=== PATIENT | female | born 1945 | race Caucasian/White ===

== ENCOUNTER 2019-09-30 08:30 | Outpatient (CLI) | payer MEDICARE, BC, SELFPAY ==
--- NOTE | ~2019-09-30 | MM_ITS ---
EXAMINATION: MM screening erick BI w adelia HISTORY: Screening mammogram TECHNIQUE: Craniocaudal and mediolateral oblique 3-D tomosynthesis images were obtained and synthetic 2-D images were generated. CAD analysis was submitted and interpreted. COMPARISON: 05/30/2018, 05/15/2017, 05/09/2017, 01/22/2017 BREAST PARENCHYMAL COMPOSITION: There are scattered areas of fibroglandular density. FINDINGS: RIGHT BREAST: There is no evidence of suspicious mass, calcification, or architectural distortion to suggest malignancy. There has been no significant interval change. LEFT BREAST: Developing asymmetry is present in the posterior third of the upper outer quadrant of th e breast 9 cm from the nipple. IMPRESSION: 1. Developing asymmetry of the left breast. 2. Additional mammographic views and possible breast ultrasound are recommended. BI-RADS Category 0: Incomplete: Needs additional imaging evaluation. Reviewed, dictated and finalized at location A. IMPRESSION: 1. Developing asymmetry of the left breast. 2. Additional mammographic views and possible breast ultrasound are recommended . BI-RADS Category 0: Incomplete: Needs additional imaging evaluation.
== END 2019-09-30 08:31 | disposition home or self-care (01) ==
PROVIDERS: PCP Family Medicine; Visit Provider Obstetrics & Gynecology
DX: Z12.31 Encounter for screening mammogram for malignant neoplasm of breast (principal); R92.8 Other abnormal and inconclusive findings on diagnostic imaging of breast
CPT/HCPCS: 77063; 77067

== ENCOUNTER 2019-10-24 11:23 | Outpatient (CLI) | payer MEDICARE, BC, SELFPAY ==
--- NOTE | ~2019-10-24 | MM_ITS ---
EXAMINATION: MM diagnostic mammo unilat LT HISTORY: Developing asymmetry in posterior third of upper outer quadrant of left breast 9 cm from nip ple was reported on 09/30/2019 screening mammogram TECHNIQUE: Additional 3-D tomosynthesis images of the left breast were performed and synthetic 2-D im ages were generated. CAD analysis was submitted and interpreted. COMPARISON: 09/30/2019, 05/30/2018, 05/09/2017 bilateral digital screening mammogram examinations 05/15/2017diagnostic left digital mammogram and left breast ultrasound BREAST PARENCHYMAL COMPOSITION: There are scattered areas of fibroglandular density. FINDINGS: There is approximately 8 mm focal irregular asymmetric soft tissue density in the posterior upper outer quadrant of the left breast. Upper outer quadrant left breast ultrasound examination is recommended. IMPRESSION: 1. 8 mm focal asymmetric irregular soft tissue density in the posterior upper outer left breast 2. Targeted upper outer quadrant left breast ultrasound examination is recommended BI-RADS Category 0: Incomplete: Needs additional imaging evaluation. Reviewed, dictated and finalized at location A. IMPRESSION: 1. 8 mm focal asymmetric irregular soft tissue density in the posterior upper o uter left breast 2. Targeted upper outer quadrant left breast ultrasound examination is recommen ded BI-RADS Category 0: Incomplete: Needs additional imaging evaluation.
== END 2019-10-24 11:24 | disposition home or self-care (01) ==
LOC: ANHIMG 11:25
PROVIDERS: PCP Family Medicine; Visit Provider Obstetrics & Gynecology
DX: R92.8 Other abnormal and inconclusive findings on diagnostic imaging of breast (principal)
CPT/HCPCS: 77065

== ENCOUNTER 2019-11-05 13:47 | Outpatient (CLI) | payer MEDICARE, BC, SELFPAY ==
--- NOTE | ~2019-11-05 | US_ITS ---
EXAMINATION: US breast LT limited HISTORY: Left breast mass TECHNIQUE: Limited left breast ultrasound performed. FINDINGS: There is a 10 mm x 9 mm irregular hypoechoic mass with indistinct margins at the 12:30 loca tion 7 cm from the nipple corresponding to the mammographic finding in question. The mass demonstrate s some posterior acoustic shadowing and no definite internal vascularity IMPRESSION: Suspicious left breast mass. Ultrasound guided biopsy is recommended. BI-RADS category 4, suspicious findings. Reviewed, dictated and finalized at location A.
== END 2019-11-05 13:48 | disposition home or self-care (01) ==
PROVIDERS: PCP Family Medicine; Visit Provider Obstetrics & Gynecology
DX: R92.8 Other abnormal and inconclusive findings on diagnostic imaging of breast (principal)
CPT/HCPCS: 76642

== ENCOUNTER 2020-03-19 09:05 | Outpatient (CLI) | payer MEDICARE, BC, SELFPAY ==
--- NOTE | ~2020-03-19 | DEXA_ITS ---
Bone Density Report Name: Amarilis Barrios Age: 75 Sex: Female Ethnicity: White Date of : 1945 Indication: postmenopausal; height loss; prior fracture; cancer; Referring Provider: Shahnaz Rodriguez Study: Bone densitometry was performed. 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 These spine BMD and T score and Z score measurements are not reflective of the patient's true general bone mineral density. Bone Density: Region BMD T-score Z-score Classification AP Spine (L1-L4) 0.917 -1.2 1.1 Osteopenia Femoral Neck (Left) 0.695 -1.4 0.6 Osteopenia Total Hip (Left) 0.848 -0.8 0.9 Normal Total Hip Bilateral Avg 0.850 -0.8 0.9 Normal Femoral Neck (Right) 0.691 -1.4 0.6 Osteopenia Total Hip (Right) 0.852 -0.7 0.9 Normal World Health Organization criteria for BMD impression classify patients as: Normal (T-score at or above -1.0), Osteopenia (T-score between -1.0 and -2.5), or Osteoporosis (T-score at or below -2.5). 10-year Fracture Risk(1): Major Osteoporotic Fracture 16% Hip Fracture 2.6% Reported Risk Factors: [place] (), Neck BMD=0.691, BMI=26.8, previous fracture (1) FRAX(R) Version 3.08. Fracture probability calculated for an untreated patient. Fracture probability may be lower if the patient has received treatment. Previous Exams: Region Exam Age BMD T-score BMD Change BMD Change Date g/cm2 vs Baseline vs Previous AP Spine(L1-L4) 03/19/2020 75 0.917 -1.2 -0.113(-11.0%) -0.027(-2.9%)* 05/09/2017 72 0.944 -0.9 -0.087(-8.4%)# 0.037(4.1%)* 03/11/2015 70 0.907 -1.3 -0.124(-12.0%) -0.026(-2.8%)# 02/01/2012 67 0.933 -1.0 -0.097(-9.5%)# -0.087(-8.5%)# 11/17/2009 64 1.019 -0.3 -0.011(-1.1%) -0.009(-0.9%) 11/09/2007 62 1.029 -0.2 -0.002(-0.2%) 0.015(1.5%) 08/18/2005 60 1.014 -0.3 -0.017(-1.6%) -0.017(-1.6%) 07/15/2002 57 1.030 -0.2 Total Hip(Left) 03/19/2020 75 0.848 -0.8 -0.101(-10.6%) -0.034(-3.8%)* 05/09/2017 72 0.882 -0.5 -0.067(-7.1%)# 0.028(3.3%)* 03/11/2015 70 0.853 -0.7 -0.095(-10.0%) -0.057(-6.3%)# 02/01/2012 67 0.910 -0.3 -0.038(-4.0%)# -0.015(-1.7%)# 11/17/2009 64 0.926 -0.1 -0.023(-2.4%) -0.004(-0.4%) 11/09/2007 62 0.930 -0.1 -0.019(-2.0%) -0.002(-0.2%) 08/18/2005 60 0.932 -0.1 -0.017(-1.8%) -0.017(-1.8%) 07/15/2002 57 0.949 0.1 Total Hip(Right) 03/19/2020 75 0.852 -0.7 -0.077(-8.3%)# -0.007(-0.8%) 05/09/2017 72 0.858 -0.7 -0.071(-7.6%)# 0.008(0.9%)
== END 2020-03-19 09:06 | disposition home or self-care (01) ==
LOC: ANHIMG 09:09
PROVIDERS: PCP Family Medicine; Visit Provider Nurse Practitioner
DX: Z78.0 Asymptomatic menopausal state (principal); M85.88 Other specified disorders of bone density and structure, other site; M85.852 Other specified disorders of bone density and structure, left thigh; M85.851 Other specified disorders of bone density and structure, right thigh
CPT/HCPCS: 77080

== ENCOUNTER → 2020-04-28 02:48 | Outpatient (CLI) | payer MEDICARE, BC, SELFPAY ==
[2020-04-28 18:08] LABS: SARS-CoV-2 RNA PCR Negative
== END ==
PROVIDERS: PCP Family Medicine; Visit Provider Internal Medicine Gastroenterology
DX: Z01.812 Encounter for preprocedural laboratory examination (principal); Z20.822 Contact with and (suspected) exposure to COVID-19
CPT/HCPCS: C9803; U0003; U0005

== ENCOUNTER 2020-05-01 01:00 | Day surgery (SDC) | payer MEDICARE, BC, SELFPAY ==
[2020-03-06 16:02] VITALS: BMI 24.9
--- NOTE | 2020-04-16 13:19 | PC.NURSE ---
Patient updated on new COVID and arrival times. Denies any changes in health history and medications.
[2020-05-01 08:15] VITALS: BP 163/77; PULSE 55; RESP 17; TEMP 37.1; O2SAT 98; BMI 24.9
[2020-05-01] MEDS: LACTATED RINGERS 1,000 ML 150 ML IV CONT (08:19)
--- NOTE | 2020-05-01 08:35 | P.PNAN_ITS ---
Anes - Initial Pre Proc Eval Procedure: Operation Date: 05/01/20 09:30 Proposed Procedures p Screening Colonoscopy - Gordon Casas MD Date/Time: 05/01/20 08:35 Surgeon: Gordon Casas MD Pre Op Diagnosis: neoplasm screening, hx breast CA Patient Data Age: 75 Gender: F Height: 5 ft 6 in Weight: 70 kg Last Vital Signs Temp 98.8 F 05/01/20 08:15 Pulse 55 L 05/01/20 08:15 Resp 17 05/01/20 08:15 BP 163/77 H 05/01/20 08:15 Pulse Ox 98 05/01/20 08:15 Allergies Allergy/AdvReac Type Severity Reaction Status Date / Time No Known Allergies Allergy Mild Verified 05/01/20 08:14 Home Medications Medication Instructions Recorded Confirmed Type levothyroxine 125 mcg tablet 125 mcg PO DAILY #30 tablet 12/24/19 05/01/20 Rx ascorbic acid (vitamin C) 1 tablet PO DAILY 03/06/20 05/01/20 History cholecalciferol (vitamin D3) 50 mcg PO DAILY 03/06/20 05/01/20 History [Vitamin D3] [id number]-jfgxaobfu-hpw C-Mn 1 cap PO DAILY 03/06/20 05/01/20 History [Glucosamine 1500 Complex] melatonin 8 mg PO HS PRN 03/06/20 05/01/20 History nutritional supplement-fiber 2 ea PO DAILY 03/06/20 05/01/20 History [Juice Plus] vitamin B complex [Super B Complex] 1 cap PO DAILY 03/06/20 05/01/20 History Patient hx anesthesia problems: none Family hx anesthesia problems: none PMFSH Past Medical History Medical History (Updated 12/25/19 @ 16:40 by Shahnaz Rodriguez NP) History of vaginal delivery x 3 Hyperlipidemia Osteopenia Thyroid disease Surgical History Surgical History [place] teeth removed Family History Family History Father Acute myocardial infarction Hypertension Mother Diabetes mellitus Cerebrovascular accident Social History Social History Smoking status: Never smoker Alcohol intake: current Drinks per week: 4 Alcohol use details: WINE Substance use: never Substance use type: does not use Living arrangements: alone Spiritual care concerns: No Anes - Eval Final PreProcedure Day of Procedure 05/01/20 08:35 Patient weight: overweight Heart: regular rate and rhythm Lungs: clear to auscultation Airway: Mallampati scale class II Neurological: alert and oriented Last oral intake: >/= 8 hours ASA classification: III Emergent: no Anesthetic plan: proceed Anesthesia type and monitoring: general GIVS and standard monitoring Informed Consent: The patient's anesthetic plan and its attendant risks and benefits were discussed with the patient/family/POA. Questions were solicited and answers provided to the satisfaction of the patient/family/POA.
--- NOTE | 2020-05-01 08:49 | PM.HPGS ---
History of Present Illness History of Present Illness Consent: Risks, benefits, and alternatives have been discussed and questions answered. Patient agrees to proceed with procedure. Chief complaint: neoplasm screening, hx breast CA Narrative: Amarilis Barrios is a 75 year old female here for screening colonoscopy, last one 10 years ago Review of Systems Constitutional: Constitutional: Denies headache(s) and Denies weakness Eyes: Eyes: Denies blurry vision ENT: Reports Normal hearing present, Denies headache(s) and Denies neck pain Cardiovascular: Cardiovascular: Denies chest pain and Denies dyspnea Respiratory: Respiratory: Denies dyspnea Gastrointestinal: Gastrointestinal: Reports no additional gastrointestinal complaints Genitourinary: Genitourinary: Denies dysuria Musculoskeletal: Musculoskeletal: Denies neck pain Integumentary/Breasts: Skin/Breast: Denies dry skin Neurologic: Reports Normal hearing present, Denies headache(s) and Denies weakness Psychiatric: Psychiatric: Denies anxiety Endocrine: Endocrine: Denies change in body appearance Hematologic/Lymphatic: Hematologic/Lymphatic: Denies easy bleeding Allergic/Immunologic: Allergic/Immunologic: Denies urticaria PMFSH Past Medical History Medical History (Updated 05/01/20 @ 08:49 by Gordon Casas MD) Colon cancer screening History of vaginal delivery x 3 Hyperlipidemia Osteopenia Thyroid disease Surgical History Surgical History [place] teeth removed Family History Family History Father Acute myocardial infarction Hypertension Mother Diabetes mellitus Cerebrovascular accident Social History Social History Smoking status: Never smoker Alcohol intake: current Drinks per week: 4 Alcohol use details: WINE Substance use: never Substance use type: does not use Living arrangements: alone Spiritual care concerns: No Meds Home Medications and Allergies Home Medications Medication Instructions Recorded Confirmed Type levothyroxine 125 mcg tablet 125 mcg PO DAILY #30 tablet 12/24/19 05/01/20 Rx ascorbic acid (vitamin C) 1 tablet PO DAILY 03/06/20 05/01/20 History cholecalciferol (vitamin D3) 50 mcg PO DAILY 03/06/20 05/01/20 History [Vitamin D3] ydlydaywkcz-anggrbopt-zit C-Mn 1 cap PO DAILY 03/06/20 05/01/20 History [Glucosamine 1500 Complex] melatonin 8 mg PO HS PRN 03/06/20 05/01/20 History nutritional supplement-fiber 2 ea PO DAILY 03/06/20 05/01/20 History [Juice Plus] vitamin B complex [Super B Complex] 1 cap PO DAILY 03/06/20 05/01/20 History Allergies Allergy/AdvReac Type Severity Reaction Status Date / Time No Known Allergies Allergy Mild Verified 05/01/20 08:14 Vital Signs Vital Signs - 24 hr 05/01/20 08:15 Temperature 98.8 F Pulse Rate 55 L Respiratory Rate 17 Blood Pressure 163/77 H Pulse Oximetry 98 Exam Const: General: comfortable and no acute distress HENMT: General nose exam: Normal nares present Eyes: General: appearance normal, both eyes and all related structures Neck: Neck: no JVD Resp: Auscultation: clear to auscultation bilaterally Cardio: Rate: regular rate Rhythm: regular rhythm GI: Inspection: non-distended GI Palp: Yes Soft to palpation Skin: General skin exam: normal color Neuro: General: gait normal Speech: normal speech Extrem: General: normal to inspection Psych: Mental Status: mental status grossly normal Assessment and Plan Assessment and plan (1) Colon cancer screening: Code(s): Z12.11 - Encounter for screening for malignant neoplasm of colon Status: Acute Assessment and Plan: proceed with colonoscopy
[2020-05-01 09:20] VITALS: BP 102/41; PULSE 55; RESP 20; O2SAT 99
[2020-05-01 09:30] VITALS: BP 126/40; PULSE 45; RESP 16; O2SAT 100
[2020-05-01 09:40] VITALS: BP 148/65; PULSE 47; RESP 13; O2SAT 100
== END 2020-05-01 09:56 | disposition home or self-care (01) ==
PROVIDERS: PCP Family Medicine; Referring Provider Internal Medicine Medical Oncology; Visit Provider Internal Medicine Gastroenterology
PROC: 0DJD8ZZ Inspection of Lower Intestinal Tract, Via Natural or Artificial Opening Endoscopic (ICD-10-PCS; CPT 45378; principal; 2020-05-01 09:30)
DX: Z12.11 Encounter for screening for malignant neoplasm of colon (principal); D12.3 Benign neoplasm of transverse colon; D12.2 Benign neoplasm of ascending colon; K57.30 Diverticulosis of large intestine without perforation or abscess without bleeding; E78.5 Hyperlipidemia, unspecified; E07.9 Disorder of thyroid, unspecified; M85.80 Other specified disorders of bone density and structure, unspecified site; Z85.3 Personal history of malignant neoplasm of breast
CPT/HCPCS: 45385; 88305; J2704; J7120

== ENCOUNTER 2023-02-08 10:15 | Outpatient (CLI) | payer MEDICARE, BC, SELFPAY ==
[2023-02-08 11:05] LABS: Basophils Absolute Auto 0.1 K/mm3 (0.0-0.1); Eosinophils Absolute Auto 0.2 K/mm3 (0-0.3); Eosinophils Percent Auto 2.6 % (0-4.4); Hematocrit 45.1 % (37.0-47.0); Hemoglobin 14.1 g/dL (12.0-15.0); Immature Granulocyte Absolute 0.01 K/mm3 (0.00-0.031); Immature Granulocyte Percent A 0.2 % (0-0.5); Lymphocytes Absolute Auto 1.42 K/mm3 (0.9-3.2); Lymphocytes Percent Auto 24.5 % (18.3-44.2); Mean Corpuscular HGB Conc 31.3 g/dl (32-36); Mean Corpuscular Hemoglobin 29.4 pg (26-34); Mean Corpuscular Volume 94.2 fl (80-100); Mean Platelet Volume 10.5 fl (7.4-10.4); Monocytes Absolute Auto 0.5 K/mm3 (0.1-0.6); Monocytes Percent Auto 8.8 % (2.6-8.5); Neutrophils Absolute Auto 3.6 K/mm3 (1.3-6.7); Neutrophils Percent Auto 62.9 % (45.5-73.1); Platelet Count Result 248 k/mm3 (150-375); Red Blood Count 4.79 M/mm3 (4.2-5.4); Red Cell Distribution Width 13.1 % (11.5-14.5); White Blood Count 5.8 K/mm3 (4.5-10.0)
[2023-02-08 11:18] LABS: Alanine Aminotransferase 27 U/L (6-35); Albumin Level 4.2 g/dL (3.5-5.1); Alkaline Phosphatase 75 U/L (38-126); Anion Gap 8 mmol/L (8-16); Aspartate Amino Transferase 28 U/L (14-36); Bilirubin,Total 0.5 mg/dL (0.2-1.3); Blood Urea Nitrogen 11 mg/dL (7-17); Calcium 9.7 mg/dL (8.4-10.2); Carbon Dioxide 25 mmol/L (22-30); Chloride 106 mmol/L (98-107); Cholesterol 251 mg/dL (0-200); Estimated Glomerular Filt Rate > 60; Glucose 104 mg/dL (65-110); HDL Direct 67 mg/dL; Sodium 139 mmol/L (137-145); Triglycerides 130 mg/dL (<150)
[2023-02-08 11:30] LABS: LDL Cholesterol Direct 130 mg/dL
[2023-02-11 14:01] LABS: Vitamin D 1,25 (OH)2 Total 45 pg/mL (18-72); Vitamin D2 1,25 (OH)2 <8 pg/mL; Vitamin D3 1,25 (OH)2 45 pg/mL
== END 2023-02-08 10:16 | disposition home or self-care (01) ==
LOC: ANHLAB 10:18
PROVIDERS: PCP Family Medicine; Visit Provider Nurse Practitioner Family
DX: E53.8 Deficiency of other specified B group vitamins (principal); E55.9 Vitamin D deficiency, unspecified; I10 Essential (primary) hypertension
CPT/HCPCS: 36415; 80053; 80061; 82607; 82652; 84443; 85025

== ENCOUNTER 2023-07-20 03:50 | Day surgery (SDC) | payer MEDICARE, BC, SELFPAY ==
[2023-07-06 09:50] VITALS: BMI 29.3
[2023-07-20 08:38] VITALS: BP 120/70; PULSE 55; RESP 18; TEMP 36.1; O2SAT 98
[2023-07-20] MEDS: LACTATED RINGERS 1,000 ML 150 ML IV CONT (09:00)
--- NOTE | 2023-07-20 09:30 | WPDANESEPPF ---
Anes - Initial Pre Proc Eval Procedure: Operation Date: 07/20/23 10:00 Proposed Procedures p Colonoscopy - Gordon Casas MD Date/Time: 07/20/23 09:30 Surgeon: Gordon Casas MD Pre Op Diagnosis: Personal hx. colon polyps Patient Data Age: 78 Gender: F Height: 1.63 m Weight: 77.5 kg Last Vital Signs Temp 97 F L 07/20/23 08:38 Pulse 55 L 07/20/23 08:38 Resp 18 07/20/23 08:38 BP 120/70 07/20/23 08:38 Pulse Ox 98 07/20/23 08:38 O2 Del Method Room Air 07/20/23 08:38 Allergies Allergy/AdvReac Type Severity Reaction Status Date / Time No Known Allergies Allergy Mild Verified 07/20/23 08:37 Home Medications Medication Instructions Recorded Confirmed Type cholecalciferol (vitamin D3) 50 50 mcg PO DAILY 03/06/20 07/13/23 History mcg (2,000 unit) capsule (Vitamin D3) ouzsbgyyopr-navgknayr-wxa C-Mn 500 1 cap PO DAILY 03/06/20 07/13/23 History mg-400 mg capsule vitamin B complex 1 cap PO DAILY 03/06/20 07/13/23 History anastrozole 1 mg tablet 1 mg PO DAILY 07/30/20 07/13/23 History simvastatin 20 mg tablet 20 mg PO QHS #90 tabs 02/07/23 07/13/23 Rx levothyroxine 137 mcg tablet 137 mcg PO DAILY #90 tabs 05/12/23 07/13/23 Rx calcium carbonate 600 mg PO BID 07/13/23 07/13/23 History Patient hx anesthesia problems: none Family hx anesthesia problems: none Results Review: All pre-operative results and documents have been reviewed as part of the pre-operative evaluation. [facility] Past Medical History Medical History Colon polyps FH: mastectomy (~01/2020) History of vaginal delivery x 3 Hyperlipidemia Osteopenia Thyroid disease Vitamin B deficiency Vitamin D deficiency Surgical History Surgical History H/O breast reconstruction H/O left mastectomy Family History Family History Father Acute myocardial infarction Hypertension Mother Diabetes mellitus Cerebrovascular accident Mother Diabetes mellitus Cerebrovascular accident Father Hypertension FH myocardial infarction male first degree age known Grandparent Cerebrovascular accident Son Diabetes mellitus Social History Social History Smoking status: Former smoker Tobacco type: cigarettes Smoking end date: 02/06/74 Alcohol intake: current Drinks per week: 14 Alcohol use details: WINE Substance use: never Substance use type: does not use Lack of Transportation: No Lack of Food: Never True Current Housing: I Have Housing Concerned About Future Housing: No Difficulty Paying Gas/Electric Bills: No Difficulty Paying for Meds: No Currently Unemployed: No Education: High School Diploma/GED Difficulty w/ Childcare or Family Care: No Living arrangements: alone Occupation/Education: retired Gender identity (if verbalized by the patient): Female Spiritual care concerns: No Agree to blood products: Yes Anes - Eval Final PreProcedure Day of Procedure 07/20/23 09:30 Patient weight: obese Heart: regular rate and rhythm Lungs: clear to auscultation Airway: Mallampati scale class II Neurological: alert and oriented Last oral intake: >/= 8 hours ASA classification: III Emergent: no Anesthetic plan: proceed Anesthesia type and monitoring: general GIVS and standard monitoring Results Review: All pre-operative results and documents have been reviewed as part of the pre-operative evaluation. Informed Consent: The patient's anesthetic plan and its attendant risks and benefits were discussed with the patient/family/POA. Questions were solicited and answers provided to the satisfaction of the patient/family/POA.
--- NOTE | 2023-07-20 09:36 | PM.HPGS ---
History of Present Illness History of Present Illness Consent: Risks, benefits, and alternatives have been discussed and questions answered. Patient agrees to proceed with procedure. Chief complaint: Personal hx. colon polyps Narrative: Amarilis Barrios is a 78 year old female with colon polyps in 2020 Review of Systems Review of Systems: All systems reviewed & are unremarkable except as noted in HPI and below PMFSH Past Medical History Medical History Colon polyps FH: mastectomy (~01/2020) History of vaginal delivery x 3 Hyperlipidemia Osteopenia Thyroid disease Vitamin B deficiency Vitamin D deficiency Surgical History Surgical History H/O breast reconstruction H/O left mastectomy Family History Family History Father Acute myocardial infarction Hypertension Mother Diabetes mellitus Cerebrovascular accident Mother Diabetes mellitus Cerebrovascular accident Father Hypertension FH myocardial infarction male first degree age known Grandparent Cerebrovascular accident Son Diabetes mellitus Social History Social History Smoking status: Former smoker Tobacco type: cigarettes Smoking end date: 02/06/74 Alcohol intake: current Drinks per week: 14 Alcohol use details: WINE Substance use: never Substance use type: does not use Lack of Transportation: No Lack of Food: Never True Current Housing: I Have Housing Concerned About Future Housing: No Difficulty Paying Gas/Electric Bills: No Difficulty Paying for Meds: No Currently Unemployed: No Education: High School Diploma/GED Difficulty w/ Childcare or Family Care: No Living arrangements: alone Occupation/Education: retired Gender identity (if verbalized by the patient): Female Spiritual care concerns: No Agree to blood products: Yes Meds Home Medications and Allergies Home Medications Medication Instructions Recorded Confirmed Type cholecalciferol (vitamin D3) 50 50 mcg PO DAILY 03/06/20 07/13/23 History mcg (2,000 unit) capsule (Vitamin D3) usniaffovar-ognbjjwfu-ckr C-Mn 500 1 cap PO DAILY 03/06/20 07/13/23 History mg-400 mg capsule vitamin B complex 1 cap PO DAILY 03/06/20 07/13/23 History anastrozole 1 mg tablet 1 mg PO DAILY 07/30/20 07/13/23 History simvastatin 20 mg tablet 20 mg PO QHS #90 tabs 02/07/23 07/13/23 Rx levothyroxine 137 mcg tablet 137 mcg PO DAILY #90 tabs 05/12/23 07/13/23 Rx calcium carbonate 600 mg PO BID 07/13/23 07/13/23 History Allergies Allergy/AdvReac Type Severity Reaction Status Date / Time No Known Allergies Allergy Mild Verified 07/20/23 08:37 Vital Signs Vital Signs - 24 hr 07/20/23 08:38 Temperature 97 F L Pulse Rate 55 L Respiratory Rate 18 Blood Pressure 120/70 Pulse Oximetry 98 Oxygen Delivery Room Air Exam Const: General: comfortable and no acute distress HENMT: Face/Nose/Sinus: Normal nares present Eyes: General: appearance normal, both eyes and all related structures Neck: Neck: no JVD Resp: Auscultation: clear to auscultation bilaterally Cardio: Rate: regular rate Rhythm: regular rhythm GI: Inspection: non-distended GI Palp: Yes Soft to palpation Skin: General skin exam: normal color Neuro: General: gait normal Speech: normal speech Extrem: General: normal to inspection Psych: Mental Status: mental status grossly normal Assessment and Plan Assessment and plan (1) Colon polyps: Code(s): K63.5 - Polyp of colon Status: Acute Assessment and Plan: colonoscopy
[2023-07-20 09:59] VITALS: BP 101/43; PULSE 47; RESP 21; O2SAT 95
[2023-07-20 10:09] VITALS: BP 113/60; PULSE 48; RESP 21; O2SAT 96
[2023-07-20 10:19] VITALS: BP 110/71; PULSE 50; RESP 18; O2SAT 100
[2023-07-20 10:29] VITALS: BP 113/73; PULSE 52; RESP 18; O2SAT 100
== END 2023-07-20 10:35 | disposition home or self-care (01) ==
PROVIDERS: PCP Family Medicine; Visit Provider Internal Medicine Gastroenterology
PROC: 0DJD8ZZ Inspection of Lower Intestinal Tract, Via Natural or Artificial Opening Endoscopic (ICD-10-PCS; CPT 45378; principal; 2023-07-20 10:00)
DX: Z12.11 Encounter for screening for malignant neoplasm of colon (principal); D12.3 Benign neoplasm of transverse colon; D12.2 Benign neoplasm of ascending colon; K57.30 Diverticulosis of large intestine without perforation or abscess without bleeding; K64.8 Other hemorrhoids; E78.5 Hyperlipidemia, unspecified; E55.9 Vitamin D deficiency, unspecified; E53.8 Deficiency of other specified B group vitamins; E07.9 Disorder of thyroid, unspecified; Z87.891 Personal history of nicotine dependence; E66.9 Obesity, unspecified; Z68.29 Body mass index [BMI] 29.0-29.9, adult
CPT/HCPCS: 45385; 88305; J2704; J7120

== ENCOUNTER 2023-09-12 08:52 | Outpatient (CLI) | payer MEDICARE, BC, SELFPAY ==
--- NOTE | ~2023-09-12 | MM_ITS ---
EXAMINATION: MM screening erick RT w adelia HISTORY: Screening. Status post left mastectomy for breast cancer. TECHNIQUE: Craniocaudal and mediolateral oblique 3-D tomosynthesis images were obtained and synthetic 2-D images were generated. CAD analysis was submitted and interpreted. COMPARISON: Comparison to multiple prior studies sequentially, with oldest reviewed study dated 10/23. BREAST PARENCHYMAL COMPOSITION: Not dense: There are scattered areas of fibroglandular density. FINDINGS: There is no evidence of suspicious mass, calcification, or architectural distortion to sugg est malignancy in the right breast. There has been no suspicious interval change. IMPRESSION: 1. No mammographic evidence of malignancy. 2. Recommend routine screening mammography in one year. BI-RADS Category 1: Negative Reviewed, dictated and finalized at location B.
--- NOTE | ~2023-09-12 | DEXA_ITS ---
Bone Density Report Name: ALEX RESTREPO Age: 78 Sex: Female Ethnicity: White Date of : 1945 Indication: postmenopausal; screening for osteoporosis; cancer; Referring Provider: RENEE WATSON Study: Bone densitometry was performed. Exam Date: September 12, 2023 Accession number: [id number] Bone Density: Region BMD T-score Z-score Classification AP Spine(L1-L4) 0.857 -1.7 0.8 Osteopenia Femoral Neck (Left) 0.669 -1.6 0.5 Osteopenia Total Hip (Left) 0.807 -1.1 0.8 Osteopenia Femoral Neck (Right) 0.715 -1.2 1.0 Osteopenia Total Hip (Right) 0.881 -0.5 1.4 Normal Total Hip Mean 0.844 -0.8 1.1 Normal World Health Organization criteria for BMD impression classify patients as: Normal (T-score at or above -1.0), Osteopenia (T-score between -1.0 and -2.5), or Osteoporosis (T-score at or below -2.5). 10-year Fracture Risk(1): Major Osteoporotic Fracture 12% Hip Fracture 2.7% Reported Risk Factors: [place] (), Neck BMD=0.669, BMI=29.2 (1) FRAX(R) Version 3.08. Fracture probability calculated for an untreated patient. Fracture probability may be lower if the patient has received treatment. Clinical Information Provided by Patient: Has used the following medications: Vitamin D, Calcium Has the following medical conditions: Cancer Patient maximum height was 64.5 Menopause Age: 47 No regular weight bearing exercise Drinks caffeinated beverages Onset of menses at age 14 Number of children 3 Impression: The patient has low bone mass, based on the Total Spine T-score. The patient has an estimated ten-year risk of hip fracture of 2.7% and an estimated ten-year risk of major fracture of 12%, based on the WHO FRAX algorithm. Discussion: BONE DENSITY IS LOW AT ONE OR MORE SKELETAL SITES. This patient's lowest T-score is low at one or more skeletal sites. It meets the World Health Organization's (WHO) criteria for ?low bone mass? (T-score between -1.0 and -2.5). The patient's 10-year risk of fracture as calculated by FRAX is less than the threshold where pharmacological therapy is recommended by the National Osteoporosis Foundation (NOF). However, all treatment decisions require clinical judgment and consideration of individual patient factors, including patient preferences, comorbidities, previous drug use, risk factors not captured in the FRAX model (e.g., frailty, falls, vitamin D deficiency, increased bone turnover, interval significant decline in bone density) and possible under or overestimation of fracture risk by FRAX. The patient should follow a healthful lifestyle (good nutrition with adequate calcium and vitamin D, and appropriate weight-bearing exercise). Follow-Up: Consider repeating this study in 2 to 3 years to reassess this patient's status, or sooner if there is some new
== END 2023-09-12 08:53 | disposition home or self-care (01) ==
PROVIDERS: PCP Family Medicine; Visit Provider Obstetrics & Gynecology
DX: Z12.31 Encounter for screening mammogram for malignant neoplasm of breast (principal); Z78.0 Asymptomatic menopausal state; M85.852 Other specified disorders of bone density and structure, left thigh; M85.851 Other specified disorders of bone density and structure, right thigh
CPT/HCPCS: 77063; 77067; 77080

== ENCOUNTER 2023-11-16 11:49 | Emergency (ER) | payer MEDICARE, BC, SELFPAY ==
[2023-11-16] VITALS (10 sets, daily range): BP systolic 112–205; BP diastolic 75–97; PULSE 60–80; RESP 12–23; TEMP 36.2; O2SAT 87–100
--- NOTE | ~2023-11-16 | CT_ITS ---
EXAMINATION: CT soft tissue neck chest wo DATE: 11/16/2023 14:16 INDICATION: Foreign body. TECHNIQUE: Computed tomography (CT) of the neck and chest was performed without intravenous contrast. Automated exposure control and iterative reconstruction technique were employed. The dose-length pro duct was 818.18 mGy-cm. COMPARISON: Neck radiographs 11/16/2023 FINDINGS: CT NECK: There are no pathologically enlarged lymph nodes. There is mild mucosal thickening in the pa ranasal sinuses. The mastoid air cells are normal. There is severe cervical spondylosis. CT CHEST: The lungs demonstrate mild atelectasis. Calcified pulmonary nodules and calcified hilar and mediastinal lymph nodes are consistent with old granulomatous disease. No pleural effusion. Cardiome eleanor is noted. There are coronary artery calcifications. No pericardial effusion. There is a left rachel ast implant. The gallbladder is distended, likely secondary to fasting. There is severe thoracic spon dylosis. IMPRESSION: 1. No foreign body. Reviewed, dictated and finalized at location A. IMPRESSION: 1. No foreign body.
--- NOTE | ~2023-11-16 | XR_ITS ---
2 VIEWS SOFT TISSUES NECK Ordering provider: Kavon Lugo MD History: . retained dental plate . Comparison: None. FINDINGS: SOFT TISSUES: No prevertebral soft tissue swelling. The epiglottis is normal. The pharynx and trach ea appear patent. VERTEBRAL BODIES: Normal height and alignment. No acute osseous findings. DISK SPACES: Narrowing of the disc C5-C6 and C6-C7. Metallic shadows are seen in the dental area. IMPRESSION: No definite abnormal. Degenerative disc disease at the level of C5-C6 and C6-C7. Reviewed, dictated and finalized at location A.
--- NOTE | 2023-11-16 12:42 | ED.SKABFB ---
HPI - Skin/Abscess/Foreign Bdy General Chief complaint: Skin/Abscess/Foreign Body Stated complaint: swallowed dental plate Time Seen by Provider: 11/16/23 11:57 Source: patient Mode of arrival: ambulatory Limitations: no limitations History of Present Illness HPI narrative: This is a 78-year-old female, who denies significant past medical history, who presents to the emergency department with sensation of something stuck in throat. The patient believes she swallowed her dental plate while sleeping last night. She states she has been able to eat, drink water and breathe without difficulty. She states she occasionally feels the object block her breathing. She has no other complaints at this time. Related Data Home Medications Medication Instructions Recorded Confirmed cholecalciferol (vitamin D3) 50 50 mcg PO DAILY 03/06/20 09/21/23 mcg (2,000 unit) capsule (Vitamin D3) [id number] C-Mn 500 1 cap PO DAILY 03/06/20 09/21/23 mg-400 mg capsule vitamin B complex 1 cap PO DAILY 03/06/20 09/21/23 anastrozole 1 mg tablet 1 mg PO DAILY 07/30/20 09/21/23 calcium carbonate 600 mg PO BID 07/13/23 09/21/23 Allergies Allergy/AdvReac Type Severity Reaction Status Date / Time No Known Allergies Allergy Mild Verified 11/16/23 12:43 Review of Systems Review of Systems: All systems reviewed & are unremarkable except as noted in HPI and below PMFSH Past Medical History Medical History Colon polyps FH: mastectomy (~01/2020) History of vaginal delivery x 3 Hyperlipidemia Osteopenia Thyroid disease Vitamin B deficiency Vitamin D deficiency Surgical History Surgical History H/O breast reconstruction H/O left mastectomy Family History Family History Father Acute myocardial infarction Hypertension Mother Diabetes mellitus Cerebrovascular accident Mother Diabetes mellitus Cerebrovascular accident Father Hypertension FH myocardial infarction male first degree age known Grandparent Cerebrovascular accident Son Diabetes mellitus Social History Social History Smoking status: Former smoker Tobacco type: cigarettes Smoking end date: 02/06/74 Alcohol intake: current Drinks per week: 14 Alcohol use details: WINE Substance use: never Substance use type: does not use Lack of Transportation: No Lack of Food: Never True Current Housing: I Have Housing Concerned About Future Housing: No Difficulty Paying Gas/Electric Bills: No Difficulty Paying for Meds: No Currently Unemployed: No Education: High School Diploma/GED Difficulty w/ Childcare or Family Care: No Living arrangements: alone Occupation/Education: retired Gender identity (if verbalized by the patient): Female Spiritual care concerns: No Agree to blood products: Yes Exam Narrative: GENERAL: Well-developed, well-nourished, and in no acute distress. HEAD: Normocephalic, atraumatic. EYES: PERRLA and EOMI. ENT: Oropharynx without tonsillar hypertrophy exudate or other lesions. There is no visible foreign object in the mouth or oropharynx. Mallampati 1. Nares clear, no rhinorrhea or epistaxis. Mucous membranes moist. NECK: Supple. No stridor CHEST: Clear to auscultation. No respiratory distress. No wheezes rales or rhonchi. There is 10s of intermittent blockage of the upper airway HEART: Regular rate and rhythm. No murmur heard. Normal peripheral pulses. EXTREMITIES: Normal range of motion. No edema. SKIN: Warm, dry, no rash. NEURO: Alert and oriented x3. No focal deficit. Moving all 4 limbs spontaneously PSYCH: Normal mood and affect. Course Course Emergency Course: 13:30 - Under moderate sedation with ketamine, I performed a laryngoscopy with glide scop
[2023-11-16] MEDS: SODIUM CHLORIDE 0.9% IV 1,000 ML 999 ML IV CONT (13:35)
[2023-11-16] MEDS: KETAMINE HCL (*CRX) 500 MG/10 ML VIAL 100 MG IV PUSH (13:36)
[2023-11-16] MEDS: LIDOCAINE HCL 4% LOCAL INJ 5 ML AMP 10 ML INFILTRATE (13:36)
--- NOTE | 2023-11-16 13:40 | PC.NURSE ---
Dr Lugo administered Ketamine 100mg at 1308 for moderate sedation
== END 2023-11-16 16:08 | disposition home or self-care (01) ==
PROVIDERS: Emergency Provider Preventive Medicine Aerospace Medicine; PCP Family Medicine
DX: R09.A2 Foreign body sensation, throat (principal); E78.5 Hyperlipidemia, unspecified; E07.9 Disorder of thyroid, unspecified; E53.9 Vitamin B deficiency, unspecified; E55.9 Vitamin D deficiency, unspecified; M85.80 Other specified disorders of bone density and structure, unspecified site; Z86.0100 Personal history of colon polyps, unspecified; Z87.891 Personal history of nicotine dependence; Z90.12 Acquired absence of left breast and nipple
CPT/HCPCS: 31530; 70360; 70490; 71250; 96374; 99285; J2003; J7030

== ENCOUNTER 2024-02-08 10:56 | Outpatient (CLI) | payer MEDICARE, BC, SELFPAY ==
[2024-02-08 12:37] LABS: Basophils Absolute Auto 0.1 K/mm3 (0.0-0.1); Eosinophils Absolute Auto 0.2 K/mm3 (0-0.3); Eosinophils Percent Auto 2.3 % (0-4.4); Hematocrit 46.4 % (37.0-47.0); Hemoglobin 14.8 g/dL (12.0-15.0); Immature Granulocyte Absolute 0.02 K/mm3 (0.00-0.031); Immature Granulocyte Percent A 0.3 % (0-0.5); Lymphocytes Absolute Auto 1.63 K/mm3 (0.9-3.2); Lymphocytes Percent Auto 22.9 % (18.3-44.2); Mean Corpuscular HGB Conc 31.9 g/dl (32-36); Mean Corpuscular Hemoglobin 29.6 pg (26-34); Mean Corpuscular Volume 92.8 fl (80-100); Mean Platelet Volume 10.5 fl (7.4-10.4); Monocytes Absolute Auto 0.5 K/mm3 (0.1-0.6); Monocytes Percent Auto 7.6 % (2.6-8.5); Neutrophils Absolute Auto 4.7 K/mm3 (1.3-6.7); Neutrophils Percent Auto 65.9 % (45.5-73.1); Platelet Count Result 279 k/mm3 (150-375); White Blood Count 7.1 K/mm3 (4.5-10.0)
[2024-02-08 12:47] LABS: Alanine Aminotransferase 24 U/L (6-35); Albumin Level 4.5 g/dL (3.5-5.1); Alkaline Phosphatase 70 U/L (38-126); Anion Gap 1 mmol/L (4-12); Aspartate Amino Transferase 48 U/L (14-36); Bilirubin,Total 0.9 mg/dL (0.2-1.3); Blood Urea Nitrogen 15 mg/dL (7-17); Calcium 10.2 mg/dL (8.4-10.2); Carbon Dioxide 31 mmol/L (22-30); Chloride 105 mmol/L (98-107); Cholesterol 246 mg/dL (0-200); Estimated Glomerular Filt Rate > 60; Glucose 98 mg/dL (65-110); HDL Direct 71 mg/dL; Potassium 4.4 mmol/L (3.4-5.0); Sodium 137 mmol/L (137-145); Triglycerides 158 mg/dL (<150)
[2024-02-08 12:59] LABS: LDL Cholesterol Direct 120 mg/dL
[2024-02-08 13:13] LABS: Vitamin D 25 Hydroxy 62.2 ng/mL
[2024-02-08 13:19] LABS: Hemoglobin A1C 5.9 % (<5.7)
[2024-02-08 13:27] LABS: Thyroid Stimulating Hormone Reflex 0.223 uIU/mL (0.465-4.68)
[2024-02-08 14:12] LABS: Free T4 Free Thyroxine Reflex 1.52 ng/dL (0.78-2.19)
[2024-02-08 14:53] LABS: Total Triiodothyronine (T3) 1.12 NG/ML (0.97-1.69)
== END 2024-02-08 10:57 | disposition home or self-care (01) ==
LOC: ANHGOSHLAB 10:57
PROVIDERS: PCP Family Medicine; Visit Provider Family Medicine
DX: E78.5 Hyperlipidemia, unspecified (principal); E03.9 Hypothyroidism, unspecified; R73.9 Hyperglycemia, unspecified; I10 Essential (primary) hypertension; E53.8 Deficiency of other specified B group vitamins; E55.9 Vitamin D deficiency, unspecified; R41.89 Other symptoms and signs involving cognitive functions and awareness
CPT/HCPCS: 36415; 80053; 80061; 82306; 82607; 83036; 84439; 84443; 84480; 85025

== ENCOUNTER 2024-02-26 09:39 | Outpatient (CLI) | payer MEDICARE, BC, SELFPAY ==
--- NOTE | ~2024-02-26 | MR_ITS ---
EXAMINATION: MR brain/brain stem wo con DATE: 02/26/2024 10:10 INDICATION: Dementia. Loss of memory. TECHNIQUE: Magnetic resonance imaging (MRI) of the brain and brainstem was performed without intraven ous contrast. COMPARISON: Neck CT 11/16/2023 FINDINGS: There is a 9 mm extra-axial mass overlying right temporal lobe that is hyperintense to rushing matter on T2 weighted images, consistent with a meningioma. There are scattered areas of nonspecific increased T2-weighted signal intensity in the cerebral white matter, which is within normal limits f or the patient's age. There is no acute ischemic infarct or intracranial hemorrhage. The ventricles a re normal in size. There is mild mucosal thickening in the ethmoid sinuses. The orbits are normal. Th e mastoid air cells are normal. IMPRESSION: 1. 9 mm meningioma overlying right frontal lobe. Reviewed, dictated and finalized at location B. FILER
== END 2024-02-26 09:40 | disposition home or self-care (01) ==
LOC: GOSHIMG 09:40
PROVIDERS: PCP Internal Medicine Medical Oncology; Referring Provider Psychiatry & Neurology Neurology; Visit Provider Family Medicine
DX: R41.89 Other symptoms and signs involving cognitive functions and awareness (principal); D32.0 Benign neoplasm of cerebral meninges
CPT/HCPCS: 70551

== ENCOUNTER 2024-12-16 09:01 | Outpatient (CLI) | payer MEDICARE, BC, SELFPAY ==
--- NOTE | ~2024-12-16 | MM_ITS ---
EXAMINATION: MM screening erick RT w adelia HISTORY: Screening TECHNIQUE: Craniocaudal and mediolateral oblique 3-D tomosynthesis images were obtained and synthetic 2-D images were generated. CAD analysis was submitted and interpreted. COMPARISON: Comparison to multiple prior studies sequentially, with oldest reviewed study dated 05/09/2017. BREAST PARENCHYMAL COMPOSITION: Not dense: There are scattered areas of fibroglandular density. FINDINGS: There is no evidence of suspicious mass, calcification, or architectural distortion to suggest malignancy in the right breast. There has been no suspicious interval change. IMPRESSION: 1. No mammographic evidence of malignancy. 2. Recommend routine screening mammography in one year. BI-RADS Category 1: Negative Reviewed, dictated and finalized at location B. 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
== END 2024-12-16 09:02 | disposition home or self-care (01) ==
LOC: MICIMG 09:03
PROVIDERS: PCP Family Medicine; Visit Provider Family Medicine
DX: Z12.31 Encounter for screening mammogram for malignant neoplasm of breast (principal)
CPT/HCPCS: 77063; 77067